=== PATIENT | male | born 1980 | race Caucasian/White ===

== ENCOUNTER → 2017-03-22 | Outpatient (CLI) | payer OTHER ==
[2017-03-22 09:05] LABS: BASOPHIL % 0.5 % (0-2); PLATELET COUNT 374 x10^3mcL (130-400); RED CELL DISTRIBUTION WIDTH 13.3 % (11.5-14.5)
[2017-03-22 09:19] LABS: ALBUMIN 3.7 g/dL (3.4-5.0); ALKALINE PHOSPHATASE 65 U/L (46-116); ALT/SGPT 72 U/L (16-63); AST/SGOT 26 U/L (15-37); BILIRUBIN TOTAL 0.2 mg/dL (0.20-1.00); CALCIUM 9.1 mg/dL (8.5-10.1); CARBON DIOXIDE 27.1 mmol/L (21-32); CHLORIDE SERUM 105 mmol/L (98-107); CREATININE SERUM 0.9 mg/dL (0.7-1.3); GFR1 > 60 mL/min; GLUCOSE SERUM 108 mg/dL (74-106); HDL CHOLESTEROL 57 mg/dL (40-60); POTASSIUM SERUM 4.1 mmol/L (3.5-5.1); SODIUM SERUM 142 mmol/L (136-145); TOTAL PROTEIN, SERUM 7.1 g/dL (6.4-8.2)
[2017-03-22 09:26] LABS: CHOLESTEROL 221 mg/dL (<200); CHOLESTEROL/HDL RATIO 3.9; TRIGLYCERIDES 223 mg/dL (<150)
[2017-03-22 09:31] LABS: FREE T4 0.87 ng/dL (0.76-1.46); FREE THYROXINE INDEX 2.4 ug/dL (1.4-4.5); T4(THYROXINE) 6.9 ug/dL (4.7-13.3)
[2017-03-22 09:51] LABS: T3 TOTAL 1.27 ng/mL
== END | disposition home or self-care (01) ==
LOC: LB 08:40
PROVIDERS: Family Medicine
DX: E66.9 Obesity, unspecified (principal)
CPT/HCPCS: 84439